=== PATIENT | male | born 1960 | race Caucasian/White ===

== ENCOUNTER 2023-11-30 23:10 | Inpatient (IN) ==
[2023-11-30 23:35] LABS: ABS Basophils 0.1 10^3/uL (0.0-0.1); ABS Eosinophils 0.4 10^3/uL (0.0-0.5); ABS Lymphocytes 1.5 10^3/uL (1.0-4.8); ABS Monocytes 0.7 10^3/uL (0.0-1.1); Eosinophil % 5.4 %; Hematocrit 45.4 % (38-53); Hemoglobin 15.1 g/dL (13.2-16.3); Lymphocyte % 19.7 %; Mean Corpuscular Hemoglobin 31.8 pg (27-33); Mean Corpuscular Hgb Conc 33.3 g/dL (31-36); Mean Corpuscular Volume 95.7 fL (80-97); Mean Platelet Volume 8.2 fL (7.5-11.2); Platelet Count 217 10^3/uL (150-450); Red Blood Count 4.74 10^6/uL (4.06-5.63); Red Cell Distribution Width 13.9 % (12-17); White Blood Count 7.7 10^3/uL (3.6-10.2)
[2023-11-30 23:39] LABS: INR 0.96 (0.85-1.14)
[2023-12-01 00:09] LABS: Albumin 4.1 g/dL (3.2-5.2); Albumin/Globulin Ratio 1.9 (1-3); Calcium 9.1 mg/dL (8.6-10.3); Creatinine, Serum 0.89 mg/dL (0.67-1.17); Globulin 2.2 g/dL (2-4); Total Bilirubin 0.6 mg/dL (0.2-1.0); Total Protein 6.3 g/dL (6.4-8.9); eGFR CKD-EPI 97.5 (>60)
[2023-12-01 00:52] LABS: High Sensitivity Troponin 1 Hr 113 pg/mL (<20)
[2023-12-01] MEDS: Heparin DRIP 25,000 UNITS BAG 25,000 UNITS/250 ML BAG IV SCH (01:35)
[2023-12-01] MEDS: Heparin 5000 UNITS/ML 1 mL VIAL IV SCH (01:35)
[2023-12-01 02:12] LABS: Creatinine, Serum 0.9 mg/dL (0.67-1.17); eGFR CKD-EPI 97.2 (>60)
[2023-12-01 07:31] LABS: High Sensitivity Troponin 1 Hr 426 pg/mL (<20)
[2023-12-01] MEDS: Sulfur Hexaflouride MICROSPHR 25 MG VIAL IV PRN (10:03)
[2023-12-01] MEDS: Aspirin EC 81 mg TAB.EC (enteric coated) PO SCH (10:03)
[2023-12-01] MEDS ORDERED: VERAPAMIL 2.5 MG/ML 2 ML VIAL ** 5 mg/2 ml ONE (14:10)
[2023-12-01] MEDS ORDERED: fentaNYL 100 mcg/2 ml 50 MCG/ML VIAL ONE ×2 (14:10→15:53)
[2023-12-01] MEDS ORDERED: Midazolam 5 mg/5 ml VIAL 1 mg/ml 5 ml VIAL (5 mg) ONE (14:10)
[2023-12-01] MEDS ORDERED: Heparin 2 UNITS/ML 1000 mls 2,000 ML IV ONE (14:10)
[2023-12-01] MEDS ORDERED: Heparin 1,000 UNIT/ML 10 ml (10,000 UNITS) CATHLAB/DIALYSIS ONE (14:10)
[2023-12-01] MEDS ORDERED: Lidocaine 1% MPF 5 ML VIAL ONE (14:11)
[2023-12-01] MEDS ORDERED: Iohexol 350 (CONTRAST) 200 ML MDV IV ONE (14:11)
[2023-12-01] MEDS ORDERED: nitroGLYCERIN DRIP 25,000 MCG/250 ML BTL ONE (14:11)
[2023-12-01] MEDS ORDERED: Iohexol 350 (CONTRAST) 100 ML PAK IV ONE (15:40)
[2023-12-01] MEDS: NS 0.9% 1000 ml BAG 1,000 ML IV SCH (21:18)
[2023-12-02 08:26] LABS: ABS Eosinophils 0.5 10^3/uL (0.0-0.5); ABS Lymphocytes 1.4 10^3/uL (1.0-4.8); ABS Monocytes 0.7 10^3/uL (0.0-1.1); Eosinophil % 5.3 %; Hematocrit 45.6 % (38-53); Hemoglobin 15.4 g/dL (13.2-16.3); Lymphocyte % 16.4 %; Mean Corpuscular Hemoglobin 32.3 pg (27-33); Mean Corpuscular Hgb Conc 33.8 g/dL (31-36); Mean Corpuscular Volume 95.7 fL (80-97); Mean Platelet Volume 8.4 fL (7.5-11.2); Platelet Count 221 10^3/uL (150-450); Red Blood Count 4.76 10^6/uL (4.06-5.63); Red Cell Distribution Width 14.2 % (12-17); White Blood Count 8.7 10^3/uL (3.6-10.2)
[2023-12-02 09:55] VITALS: BP 106/70
== END 2023-12-02 11:09 | disposition short-term general hospital (02) | DRG 190 ==
LOC: ED 23:10 → SUATTDRO 12-01 01:58 → EDHOLD 12-01 01:58 → MEDTELE 12-01 13:01
PROVIDERS: ADMIT Internal Medicine; ATTEND Hospitalist